=== PATIENT | female | born 1970 | race Caucasian/White ===

== ENCOUNTER 2019-01-02 15:58 | Emergency (ER) | payer BC ==
[2019-01-02 16:14] VITALS: BP 133/92
[2019-01-02] MEDS ORDERED: Tetan/Diph/Pertus SYR(Tdap)* 0.5 ML SYR(BOOSTRIX) use SYR contains LATEX IM ONE (16:40)
[2019-01-02] MEDS ORDERED: Lidocaine 2% w EPI 1:100,000* 20 ML MDV VIAL INJ ONE (17:04)
--- NOTE | 2019-01-02 17:14 | UC ---
Laceration HPI - HPI Summary HPI Summary: patient lacerated back of L hand on some part of backpack while hiking approximately 3 h ago - History Of Current Complaint Chief Complaint: UCLaceration Stated Complaint: HAND LAC Time Seen by Provider: 01/02/19 16:54 Hx Obtained From: Patient Hx Last Menstrual Period: 791101 Laceration Location: Hand - L dorsal Mechanism Of Injury: Sharp Trauma Onset/Duration: Sudden Onset Severity: Mild Pain Intensity: 3 Related History: Dominant Hand Right - Allergies/Home Medications Allergies/Adverse Reactions: Allergies Allergy/AdvReac Type Severity Reaction Status Date / Time Penicillins Allergy Hives Verified 01/02/19 16:14 Home Medications: Home Medications Albuterol HFA INHALER* [Ventolin HFA Inhaler*] 2 puff INH Q4H PRN 01/02/19 [ History Confirmed 01/02/19] Escitalopram Oxalate [Lexapro 10 mg] 10 mg PO DAILY 01/02/19 [History Confirmed 01/02/19] PMH/Surg Hx/FS Hx/Imm Hx Previously Healthy: Yes Respiratory History: Asthma Psychological History: Depression - Surgical History Surgical History: Yes Surgery Procedure, Year, and Place: repair after childbirth - Family History Known Family History: Positive: None - Social History Occupation: Employed Full-time Lives: With Family Alcohol Use: Rare Substance Use Type: None Smoking Status (MU): Never Smoked Tobacco - Immunization History Most Recent Tetanus Shot: unknown but greater than 5 years Review of Systems All Other Systems Reviewed And Are Negative: Yes Constitutional: Positive: Negative Respiratory: Positive: Negative Cardiovascular: Positive: Negative Musculoskeletal: Positive: Negative Neurological: Positive: Negative Psychological: Positive: Negative Is Patient Immunocompromised?: No Physical Exam Triage Information Reviewed: Yes Appearance: Well-Appearing, No Pain Distress, Well-Nourished Vital Signs: Initial Vital Signs Temp 98.2 F 01/02/19 16:09 Pulse 79 01/02/19 16:09 Resp 16 01/02/19 16:09 BP 133/92 01/02/19 16:09 Pulse Ox 99 01/02/19 16:09 Vital Signs Reviewed: Yes Respiratory Exam: Normal Respiratory: Positive: Lungs clear Cardiovascular Exam: Normal Cardiovascular: Positive: RRR Musculoskeletal Exam: Normal Musculoskeletal: Positive: Strength Intact, ROM Intact Neurological Exam: Normal Neurological: Positive: Alert Psychological Exam: Normal Skin Exam: Other - 5 cm laceration L dorsal hand Laceration Repair - Laceration Repair 1 Description: Linear Laceration Size After Repair: Length (cm) - 5cm, Width (mm) - 10mm, Depth (mm) - 3mm Modified For Repair: No Anesthesia Used: 2.0% Lido Additive Used (in ml): Epi Cleansing Completed Via Routine Prep: Yes Closure Material: Sutures Closure Method: Single Layer Suture Of: Skin Suture Type: Nylon - eight 5.0 nylon sutures placed Laceration Course/Dx - Differential Dx - Laceration/Wound Differental Diagnoses: Abrasion, Avulsion, Laceration - Diagnosis Provider Diagnosis: Hand laceration Discharge ED - Sign-Out/Discharge Documenting (check all that apply): Patient Departure All imaging exams completed and their final reports reviewed: No Studies - Discharge Plan Condition: Good Disposition: HOME Patient Education Materials: Laceration (ED), Tdap and Td Vaccines for Adults ( ED) Referrals: No Primary Care Phys,NOPCP [Primary Care Provider] - Additional Instructions: elevate hand and apply cold packs for 48 hours use ibuprofen as directed for pain keep wound clean, dry and covered (you may shower, but no swimming or hot tubs) suture removal in 10 days - Billing Disposition and Condition Condition: GOOD Disposition: Home
== END 2019-01-02 18:03 | disposition home or self-care (01) ==
LOC: UCEAST 15:58
DX: S61.412A Laceration without foreign body of left hand, initial encounter (principal); F32.9 Major depressive disorder, single episode, unspecified; J45.909 Unspecified asthma, uncomplicated; Z23 Encounter for immunization; Z88.0 Allergy status to penicillin; X58.XXXA Exposure to other specified factors, initial encounter; Y93.01 Activity, walking, marching and hiking; Y92.9 Unspecified place or not applicable
CPT/HCPCS: 12032; 90471; 90715; 99201; G0463